=== PATIENT | female | born 1975 | race Caucasian/White ===

== ENCOUNTER → 2017-01-13 | Outpatient (CLI) | payer OTHER ==
[~2017-01-13] MED LIST: ALBUTEROL17 GM INH; ALPRAZOLAM PO; AUGMENTIN PO; BACTRIM DS TABL1 TA1 PO; COMBIVENT INH14.7 GM INH; DUONEB 2.5-0.5 M3 ML NEB; FLEXERIL PO; FLOXIN20 EA OP; MEDROL DOSEPAK4 MG DOB; NEOMYCI/POLY/GR10 ML OT; ORUDIS75 M1 DOB; PROTONIX PO; PYRIDIUM PO; ULTRAM PO; VICODIN 5/500 T1 TAB PO; VOLTAREN75 MG PO; ZITHROMAX1 G/PKT PO; ZYRTEC10 M4 PO
--- NOTE | ~2017-01-13 | CR127 ---
[facility] A Service of [facility] [place] & [facility] RADIOLOGY TEXT RESULTS PATIENT: CHRIST JIMENES LOCATION: [facility] : 71 UNIT #: [id number] AGE: [address]: KIKI PRUITT APRN SEX: F ORDER DR: [id number] [facility] [address] [place], [place] [address] [id number] O MR#: [id number] Acc #: [id number] NAME: CHRIST JIMENES : 1975 SEX: F STUDY DATE/TIME: 01/13/2017 19:06 UNIT: [facility] ROOM: STUDY DESCRIPTION: CR Foot Complete Min 3 View Rt Attending Physician: Kiki Pruitt Aprn Referring Physician: Kiki Pruitt Aprn Ordering Physician: Staff Doctor Not On Primary Care Physician: Naif Preciado M.D. MEDICAL IMAGING REPORT This report is preliminary unless electronic signature is present EXAM Right foot. INDICATIONS Right foot pain. Dropped TV on the foot. Pain, swelling and numbness. FINDINGS Three views of the right foot without comparison. There is generalized soft tissue swelling of the dorsum of the foot. There is no underlying fracture or foreign body. IMPRESSION Dorsal soft tissue swelling over the foot. No underlying fracture identified. Dictated by... Abner Moreira M.D. THIS IS AN ELECTRONICALLY VERIFIED REPORT Abner Moreira M.D. at 01/14/2017 3:10 PM DINA/li TD: 01/13/2017 22:10 JOB #: [id number] MEDICAL IMAGING REPORT Page 1 of 1 COPY
== END | disposition home or self-care (01) ==
LOC: CRAD 18:44
DX: S99.921A Unspecified injury of right foot, initial encounter (principal); M79.89 Other specified soft tissue disorders
CPT/HCPCS: 73630

== ENCOUNTER 2017-01-24 19:42 | Emergency (ER) | payer OTHER ==
--- NOTE | ~2017-01-24 | CR127 ---
[facility] A Service of [facility] & [facility] RADIOLOGY TEXT RESULTS PATIENT: CHRIST JIMENES LOCATION: [facility] : 71 UNIT #: [id number] AGE: [address]: Peggy Andersen APRN SEX: F ORDER DR: [id number] [facility] [address] [place], [place] [address] [id number] E MR#: [id number] Acc #: [id number] NAME: CHRIST JIMENES : 1975 SEX: F STUDY DATE/TIME: 01/24/2017 20:20 UNIT: [facility] ROOM: STUDY DESCRIPTION: CR Foot Complete Min 3 View Rt Attending Physician: Peggy Andersen A.P.R.N. Ordering Physician: Peggy Andersen A.P.R.N. Primary Care Physician: Naif Preciado M.D. MEDICAL IMAGING REPORT This report is preliminary unless electronic signature is present EXAM Right foot 01/24/2017. INDICATIONS 41-year-old female with dorsal bruising, swelling and pain near the toes for a week after dropping a TV on the foot. TECHNIQUE 3 views of the right foot. COMPARISON Compared with 01/13/2017. FINDINGS There is dorsal soft tissue swelling, but no associated fracture or retained opaque foreign body. Joint spaces preserved. IMPRESSION 1. Dorsal soft tissue swelling. Otherwise negative. Dictated by... Izaiah Wilde M.D. THIS IS AN ELECTRONICALLY VERIFIED REPORT Izaiah Wilde M.D. at 01/25/2017 2:21 PM Stefanie TD: 01/25/2017 10:45 JOB #: [id number] MEDICAL IMAGING REPORT Page 1 of 1 COPY
== END 2017-01-24 21:20 | disposition home or self-care (01) ==
LOC: CFTX 19:42 → CED 19:42 → CFTX 20:26
DX: S90.31XA Contusion of right foot, initial encounter (principal); W20.8XXA Other cause of strike by thrown, projected or falling object, initial encounter; Y92.9 Unspecified place or not applicable; F41.9 Anxiety disorder, unspecified; J45.909 Unspecified asthma, uncomplicated; F17.210 Nicotine dependence, cigarettes, uncomplicated
CPT/HCPCS: 29540; 73630; 96372; 99283; J1885